=== PATIENT | male | born 1975 | race Native Hawaiian/Other Pacific Islander ===

== ENCOUNTER 2017-09-17 01:46 | Emergency (ER) | payer SELFPAY ==
[~2017-09-17] VITALS: Ht 180.3 cm; Wt 69.0 kg
[~2017-09-17 01:46] MED LIST: CLON1 PO; NAPR500 PO; PAXI20TA26 PO
[2017-09-17 01:49] VITALS: BP 124/74; PULSE 66; RESP 18; TEMP 98; O2SAT 98
[2017-09-17] MEDS ORDERED: PAXI10TA8 PO (01:57)
[2017-09-17] MEDS ORDERED: CLON1 PO (01:57)
[2017-09-17] MEDS ORDERED: SODIUM CHLOR 0.9% 1000 ML INJ 1,000 ML IV ONE (02:00)
[2017-09-17] MEDS ORDERED: diphenhydrAMINE HCL 50 MG/ML VIAL IV PUSH ONE (02:00)
[2017-09-17 02:26] LABS: BASOPHIL # 0.1 TH/MM3 (0-0.2); BASOPHIL % 1.1 % (0.0-2.0); EOSINOPHIL # 0.2 TH/MM3 (0-0.4); HEMATOCRIT 39.5 % (39.0-51.0); HEMOGLOBIN 13.8 GM/DL (13.0-17.0); LYMPH % 31.8 % (9.0-44.0); LYMPHOCYTE # 2.2 TH/MM3 (1.0-4.8); MEAN CELL VOLUME 92.8 FL (80.0-100.0); MEAN CORPUSCULAR HEMOGLOBIN 32.4 PG (27.0-34.0); MEAN CORPUSCULAR HGB CONC 34.9 % (32.0-36.0); MEAN PLATELET VOLUME 9.6 FL (7.0-11.0); MONO % 5.9 % (0.0-8.0); MONOCYTE # 0.4 TH/MM3 (0-0.9); NEUT % 58.2 % (16.0-70.0); PLATELET COUNT 172 TH/MM3 (150-450); RED BLOOD COUNT 4.25 MIL/MM3 (4.50-5.90); RED CELL DISTRIBUTION WIDTH 11.6 % (11.6-17.2); WHITE BLOOD COUNT 6.9 TH/MM3 (4.0-11.0)
[2017-09-17 02:35] LABS: CHLORIDE 105 MEQ/L (98-107); SODIUM (NA) 140 MEQ/L (136-145)
[2017-09-17 02:39] LABS: ALBUMIN 3.7 GM/DL (3.4-5.0); BICARBONATE 27.2 MEQ/L (21.0-32.0); BLOOD UREA NITROGEN 9 MG/DL (7-18); CALCIUM 7.9 MG/DL (8.5-10.1); GLUCOSE,RANDOM 109 MG/DL (74-106)
[2017-09-17 02:42] LABS: ALT (GPT) 33 U/L (12-78); AST (GOT) 15 U/L (15-37); GLOMERULAR FILTRATION RATE 75 ML/MIN (>89)
[2017-09-17 02:44] LABS: TOTAL BILIRUBIN ADULT 0.3 MG/DL (0.2-1.0); TOTAL PROTEIN 7.2 GM/DL (6.4-8.2)
[2017-09-17 02:45] LABS: ALKALINE PHOSPHATASE 65 U/L (45-117)
[2017-09-17 02:47] LABS: TROPONIN I LESS THAN 0.02 NG/ML (0.02-0.05)
--- NOTE | 2017-09-17 03:13 | PD ---
HPI Chief Complaint: Anxiety Time Seen by Provider: 01:51 Travel History International Travel<30 days: No Contact w/Intl Traveler<30days: No Traveled to known affect area: No History of Present Illness HPI Patient is a 41 year old male who comes in complaining of anxiety. He says that while he was driving he started to feel dizzy and very warm. He says when he stopped and got out of the car, he felt better. He said he got in the car and it happened again. Again he stopped and felt better. A third time he got in the car and things got worse and he started to have a full on panic attack. He says he has a history of anxiety, and this feels similar, however it has been lasting a lot longer. He does take medications for anxiety and has been compliant with these. He denies ever having any chest pain or shortness of breath. He says he did feel like his heart was racing. Severity is mild. He does say that he is already starting to feel better. [facility] Past Medical History Anxiety: Yes Depression: Yes Diminished Hearing: No Psychiatric: Yes (PANIC ATTACKS) Reproductive: Yes (PANIC ATTACKS) ?: Not Social History Alcohol Use: No ("NEVER") Tobacco Use: Yes (1 PPD) Substance Use: No Allergies-Medications (Allergen,Severity, Reaction): Coded Allergies: No Known Allergies (Verified , 05/04/15) Reported Meds & Prescriptions Reported Meds & Active Scripts Active Reported Klonopin (Clonazepam) 1 Mg Tab 1 Mg PO BID Paxil (Paroxetine HCl) 10 Mg Tab 10 Mg PO DAILY Review of Systems Except as stated in HPI: all other systems reviewed are Neg General / Constitutional: No: Fever, Chills Eyes: No: Blurred Vision HENT: Positive: Lightheadedness, No: Headaches Cardiovascular: Positive: Palpitations, No: Chest Pain or Discomfort Respiratory: No: Shortness of Breath Gastrointestinal: No: Nausea, Vomiting Musculoskeletal: No: Myalgias, Edema Skin: No Rash, No Change in Pigmentation Neurologic: No: Weakness, Dizziness Physical Exam Narrative GENERAL: Awake and alert, in no acute distress. SKIN: Focused skin assessment warm/dry. No wounds or signs of infection. HEAD: Atraumatic. Normocephalic. EYES: Pupils equal and round. No scleral icterus. EOMI. ENT: Mucous membranes pink and moist. NECK: Trachea midline. No JVD. CARDIOVASCULAR: Regular rate and rhythm. No murmur appreciated. RESPIRATORY: No accessory muscle use. Clear to auscultation. Breath sounds equal bilaterally. GASTROINTESTINAL: Abdomen soft, non-tender, nondistended. MUSCULOSKELETAL: No obvious deformities. No clubbing. No cyanosis. No edema. NEUROLOGICAL: Awake and alert. No obvious cranial nerve deficits. Motor grossly within normal limits. Normal speech. PSYCHIATRIC: Appropriate mood and affect; insight and judgment normal. Data Data Last Documented VS Vital Signs Date Time Temp Pulse Resp B/P (MAP) Pulse Ox O2 Delivery O2 Flow Rate FiO2 09/17/17 01:53 18 09/17/17 01:49 98.0 66 124/74 (91) 98 Orders Orders Iv Access Insert/Monitor (09/17/17 01:57) Complete Blood Count With Diff (09/17/17 01:57) Comprehensive Metabolic Panel (09/17/17 01:57) Troponin I (09/17/17 01:57) Electrocardiogram (09/17/17 ) Sodium Chlor 0.9% 1000 Ml Inj (Ns 1000 M (09/17/17 02:00) Diphenhydramine Inj (Benadryl Inj) (09/17/17 02:00) Labs Laboratory Tests Test 09/17/17 02:10 White Blood Count 6.9 TH/MM3 Red Blood Count 4.25 MIL/MM3 Hemoglobin 13.8 GM/DL Hematocrit 39.5 % Mean Corpuscular Volume 92.8 FL Mean Corpuscular Hemoglobin 32.4 PG Mean Corpuscular Hemoglobin Concent 34.9 % Red Cell Distribution Width 11.6 % Platelet Count 172 TH/MM3 Mean Platelet Volume 9.6 FL Neutrophils (%) (Auto) 58.2 % Lymphocytes (%) (Auto) 31.8 % Monocytes (%) (Auto) 5.9 % Eosinophils (%) (Auto) 3.0 % Basophils (%) (Auto) 1.1 % Neutrophils # (Auto) 4.0 TH/MM3 Lymphocytes # (Auto) 2.2 TH/MM3 Monocytes # (Auto) 0.4 TH/MM3 Eosinophils # (Auto) 0.2 TH/MM3 Basophils # (Auto) 0.1 TH/MM3 CBC Comment DIFF FINAL Differential Comment Blood Urea Nitrogen 9 MG/DL Creatinine 1.10 MG/DL Random Glucose 109 MG/DL Total Protein 7.2 GM/DL Albumin 3.7 GM/DL Calcium Level 7.9 MG/DL Alkaline Phosphatase 65 U/L Aspartate Amino Transf (AST/SGOT) 15 U/L Alanine Aminotransferase (ALT/SGPT) 33 U/L Total Bilirubin 0.3 MG/DL Sodium Level 140 MEQ/L Potassium Level 3.3 MEQ/L Chloride Level 105 MEQ/L Carbon Dioxide Level 27.2 MEQ/L Anion Gap 8 MEQ/L Estimat Glomerular Filtration Rate 75 ML/MIN Troponin I LESS THAN 0.02 NG/ML MDM Medical Decision Making Medical Screen Exam Complete: Yes Emergency Medical Condition: Yes Medical Record Reviewed: Yes Interpretation(s) ECG shows sinus bradycardia at a rate of 57, no ST elevation or depression, normal intervals. Differential Diagnosis anxiety vs electrolyte abnormalities vs dehydration Narrative Course Patient is a 41 year old male who comes in complaining of anxiety. Exam shows no acute abnormalities. IV established, labs sent. Labs show no acute abnormalities. Patient given IVF and Benadryl. He reports feeling better and would like to go home. Advised to follow up with his doctors. Advised to return to the ED as needed for any worsening symptoms. Diagnosis Primary Impression: Anxiety Patient Instructions: Anxiety (ED), General Instructions Additional Instructions: Follow up with your doctor. Return to the ED as needed for any worsening symptoms. Disposition: 01 DISCHARGE HOME Condition: Stable Rosie Mosley MD Sep 17, 2017 03:13
[2017-09-17 03:53] VITALS: BP 108/65
--- NOTE | 2017-09-17 12:59 | EKG ---
Date Performed: 09/17/2017 Time Performed: 02:15:53 PTAGE: 41 years EKG: SINUS BRADYCARDIA MODERATE INTRAVENTRICULAR CONDUCTION DELAY BORDERLINE ECG PREVIOUS TRACING : 05/05/2010 00.56 Since the previous tracing, no significant change noted DOCTOR: Mook Funez Interpretating Date/Time 09/17/2017 12:55:38
== END 2017-09-17 03:55 | disposition home or self-care (01) ==
LOC: PHED 01:46
DX: F41.9 Anxiety disorder, unspecified (principal); R00.1 Bradycardia, unspecified; R42 Dizziness and giddiness; F41.0 Panic disorder [episodic paroxysmal anxiety]; F32.9 Major depressive disorder, single episode, unspecified; F17.200 Nicotine dependence, unspecified, uncomplicated; Z79.899 Other long term (current) drug therapy
CPT/HCPCS: 80053; 84484; 85025; 93005; 96361; 96374; 99284; J1200; J7030